=== PATIENT | female | born 1955 | race Caucasian/White ===

== ENCOUNTER 2020-03-17 10:18 | Emergency (ER) | payer MEDICARE, OTHER ==
--- NOTE | 2020-03-17 11:22 | ER Document Report ---
ED Medical Screen (RME) - General Chief Complaint: Chest Pain Stated Complaint: CHEST/LUNG PAIN Time Seen by Provider: 03/17/20 11:13 Primary Care Provider: GWEN LEON MD [Primary Care Provider] - Follow up as needed TRAVEL OUTSIDE OF THE [place] IN LAST 30 DAYS: No - HPI Notes: 03/17/20 11:20 64-year-old female with a history of PVCs, hypertension and hypercholesteremia presents to the emergency room for complaints of worsening palpitations and chest pain over the last 5 days. Patient reports left-sided chest pain as a dull ache that lasts intermittently for only few seconds that radiates underneath her arms. Denies any shortness of breath, nausea vomiting or diarrhea, fevers or chills. No prior history of MO. Denies any trauma. Reports mother has a history of stroke and hypertension, father history of hypertension. Patient states that she does not always feel the palpitations while she is having the chest pain. Patient does not follow with a graphic design professor however she did years ago when she was being worked up for her PVCs. Denies any new medications or foods. Denies any history of thyroid issues. Patient is not on any blood thinners I have greeted and performed a rapid initial assessment of this patient. A comprehensive ED assessment and evaluation of the patient, analysis of test results and completion of the medical decision making process will be conducted by additional ED providers. PHYSICAL EXAMINATION: GENERAL: Well-appearing, well-nourished and in no acute distress. HEAD: Atraumatic, normocephalic. EYES: Pupils equal round extraocular movements intact, conjunctiva are normal. NECK: Normal range of motion CV: s1, s2 regular LUNGS: No respiratory distress 03/17/20 11:22 - Related Data Allergies/Adverse Reactions: No Known Allergies Allergy (Unverified 07/15/12 11:54) Past Medical History - Past Medical History Cardiac Medical History: Reports: Hx Hypertension Past Surgical History: Reports: Hx Breast Surgery, Hx Hysterectomy - Immunizations Hx Diphtheria, Pertussis, Tetanus Vaccination: Yes Physical Exam - Vital signs Vitals: Temp Pulse Resp BP Pulse Ox 98.3 F 63 18 158/65 H 97 03/17/20 10:43 03/17/20 10:43 03/17/20 10:43 03/17/20 10:43 03/17/20 10:43 Course - Vital Signs Vital signs: Temp Pulse Resp BP Pulse Ox 98.3 F 63 18 158/65 H 97 03/17/20 10:43 03/17/20 10:43 03/17/20 10:43 03/17/20 10:43 03/17/20 10:43 Doctor's Discharge - Discharge Referrals: GWEN LEON MD [Primary Care Provider] - Follow up as needed
--- NOTE | 2020-03-17 11:57 | RADIOLOGY REPORT (SQ) ---
EXAM DESCRIPTION: CHEST 2 VIEWS IMAGES COMPLETED DATE/TIME: 03/17/2020 11:48 am REASON FOR STUDY: cp COMPARISON: 08/11/2009 EXAM PARAMETERS: NUMBER OF VIEWS: two views TECHNIQUE: Digital Frontal and Lateral radiographic views of the chest acquired. RADIATION DOSE: NA LIMITATIONS: none FINDINGS: LUNGS AND PLEURA: No opacities, masses or pneumothorax. No pleural effusion. MEDIASTINUM AND HILAR STRUCTURES: No masses or contour abnormalities. HEART AND VASCULAR STRUCTURES: Heart normal size. No evidence for failure. BONES: No acute findings. HARDWARE: None in the chest. OTHER: No other significant finding. IMPRESSION: NO ACUTE RADIOGRAPHIC FINDING IN THE CHEST. TECHNICAL DOCUMENTATION: JOB ID: [id number] 2010 [employer]- All Rights Reserved Reading location - IP/workstation name: [email or web address]
[2020-03-17 11:59] LABS: ABSOLUTE BASOPHILS # (AUTO) 0.1 10^3/uL (0.0-0.2); ABSOLUTE EOSINOPHILS # (AUTO) 0.1 10^3/uL (0.0-0.6); ABSOLUTE LYMPHOCYTES (AUTO) 1.9 10^3/uL (0.5-4.7); ABSOLUTE MONOCYTES (AUTO) 0.5 10^3/uL (0.1-1.4); ABSOLUTE NEUT (AUTO) 4.1 10^3/uL (1.7-8.2); BASOPHILS % (AUTO) 1.4 % (0-2); EOSINOPHILS % (AUTO) 1.3 % (0-6); HEMATOCRIT 37.7 % (36.0-47.0); MEAN CORPUSCULAR HEMOGLOBIN 29.8 pg (27.0-33.4); MEAN CORPUSCULAR HGB CONC 34.5 g/dL (32.0-36.0); MEAN CORPUSCULAR VOLUME 86 fl (80-97); PLATELET COUNT 298 10^3/uL (150-450); RED BLOOD COUNT 4.38 10^6/uL (3.72-5.28); RED CELL DISTRIBUTION WIDTH 13.1 % (11.5-14.0); SEGMENTED NEUTROPHILS % (AUTO) 61.3 % (42-78); TOTAL CELLS COUNTED % (AUTO) 100 %; WHITE BLOOD COUNT 6.7 10^3/uL (4.0-10.5)
[2020-03-17 12:16] LABS: ALBUMIN 4.6 g/dL (3.5-5.0); ALKALINE PHOSPHATASE 120 U/L (38-126); ANION GAP 11 (5-19); ASPARTATE AMINO TRANSFERASE 26 U/L (14-36); BILIRUBIN,DIRECT 0.3 mg/dL (0.0-0.4); BILIRUBIN,TOTAL 0.6 mg/dL (0.2-1.3); BLOOD UREA NITROGEN 15 mg/dL (7-20); CALCIUM 9.8 mg/dL (8.4-10.2); CARBON DIOXIDE 31 mmol/L (22-30); CHLORIDE 99 mmol/L (98-107); CREATINE KINASE 98 U/L (30-135); GLUCOSE 113 mg/dL (75-110); TOTAL PROTEIN 7.4 g/dL (6.3-8.2)
[2020-03-17 12:29] LABS: CREATINE KINASE MB 0.91 ng/mL (<4.55)
[2020-03-17 12:30] LABS: TROPONIN I < 0.012 ng/mL
[2020-03-17 17:08] VITALS: BP 137/72
--- NOTE | 2020-03-17 17:08 | ER Document Report ---
ED General - General Chief Complaint: Chest Pain Stated Complaint: CHEST/LUNG PAIN Time Seen by Provider: 03/17/20 11:13 Primary Care Provider: GWEN LEON MD [Primary Care Provider] - Follow up as needed Mode of Arrival: Ambulatory Information source: Patient Notes: 64-year-old female with history of PVCs and hypertension coming in today with intermittent episodes of slight left-sided chest pressure. Patient does not have any associated diaphoresis, shortness of breath, radiation of symptoms. She noticed that she has been having increased episodes of PVCs as well. She does not smoke, drink, or do drugs. She does not have any other known cardiac risk factors. TRAVEL OUTSIDE OF THE [place] IN LAST 30 DAYS: No - Related Data Allergies/Adverse Reactions: No Known Allergies Allergy (Unverified 07/15/12 11:54) Past Medical History - Social History Smoking Status: Never Smoker Chew tobacco use (# tins/day): No Frequency of alcohol use: None Drug Abuse: None Family History: Reviewed & Not Pertinent - Past Medical History Cardiac Medical History: Reports: Hx Hypercholesterolemia, Hx Hypertension GI Medical History: Reports: Hx Gastroesophageal Reflux Disease Past Surgical History: Reports: Hx Breast Surgery, Hx Hysterectomy, Hx Tonsillectomy - Immunizations Hx Diphtheria, Pertussis, Tetanus Vaccination: Yes Review of Systems - Review of Systems Notes: Constitutional: No fevers. No chills. EENT: No eye redness. No eye pain. No ear pain. No sore throat. Cardiovascular: Positive for rare palpitations. Positive for mild left-sided chest pain Respiratory: No cough. No shortness of breath. No respiratory distress. Gastrointestinal: No abdominal pain. No nausea, vomiting, or diarrhea. Genitourinary: Atraumatic. No lesions. No pain. No discharge. Musculoskeletal: Atraumatic. No swelling. No deformities. Skin: No rash or lesions. Lymphatic: No swollen lymph nodes. Neurologic: No headache. No syncope. Psychiatric: No suicidal or homicidal ideation. Physical Exam - Vital signs Vitals: Temp 98.2 F 03/17/20 10:21 - Notes Notes: General: Well-developed, well-nourished. In no acute distress. Non-toxic appearing. Cardiac: Well-perfused. Regular rate and rhythm. No murmurs, rubs, or gallops. Pulmonary: No respiratory distress. No cyanosis. Bilateral lung monk are clear to auscultation. Abdominal: Non-distended. Non-rigid. Bowels sounds are present in all four quadrants. No guarding or rebound. HEENT: Head is atraumatic. Conjunctivae not reddened. No tearing. PERRL. EOMI. Orbits atraumatic. No periorbital swelling or erythema. Oropharynx is without er ythema, swelling, or exudates. Neck: Supple. No adenopathy. No meningismus. Dermatologic: Warm with good turgor. No rash. Atraumatic. Chest: Atraumatic. No chest wall tenderness to palpation. Musculoskeletal: Moves all extremities well. No range of motion deficits. no muscular or joint tenderness. No paraspinal muscle tenderness. no midline spinal tenderness or step-off. Genitourinary: Examination deferred Neurologic: No gross neurologic deficits. Psychiatric: Normal mood. Course - Re-evaluation Re-evalutation: 03/17/20 17:04 The time the patient is seen, she has had 2 sets of cardiac enzymes get it. Patient has very mild symptoms that come and go intermittently. She has not had any shortness of breath, dizziness, diaphoresis. No nausea whatsoever. Her heart score is 3. I did encourage her to follow-up with her primary care doctor and will also give her Dr. Bernard's information. She is advised to return to the emergency department at any time if her symptoms get worse. - Vital Signs Vital signs: Temp Pulse Resp BP Pulse Ox 98.3 F 63 16 158/65 H 98 03/17/20 10:43 03/17/20 10:43 03/17/20 16:16 03/17/20 10:43 03/17/20 16:16 - Laboratory Result Diagrams: 03/17/20 11:30 03/17/20 11:30 Laboratory results interpreted by me: 03/17/20 11:30 Carbon Dioxide 31 H Glucose 113 H - Diagnostic Test Radiology reviewed: Reports reviewed - EKG Interpretation by De EKG shows normal: Sinus rhythm Rate: Normal Rhythm: NSR Additional EKG results interpreted by me: 03/17/20 17:[address] segment elevations or depressions Discharge - Discharge Clinical Impression: Elevated blood pressure reading Chest pain Qualifiers: Chest pain type: unspecified Qualified Code(s): R07.9 - Chest pain, unspecified Condition: Good Disposition: HOME, SELF-CARE Instructions: Chest Pain of Unclear Cause ([facility]) Forms: Elevated Blood Pressure Referrals: GWEN LEON MD [Primary Care Provider] - 03/18/20
--- NOTE | 2020-03-18 13:01 | EKG REPORT ---
SEVERITY:- ABNORMAL ECG - SINUS RHYTHM NONSPECIFIC ST-T CHANGES ANTERIOR WALL. : Confirmed by: Codey Warren MD 18-Mar-2020 13:01:01
== END 2020-03-17 17:19 | disposition home or self-care (01) ==
LOC: ER 10:18
DX: R07.9 Chest pain, unspecified (principal); I10 Essential (primary) hypertension; E78.00 Pure hypercholesterolemia, unspecified
CPT/HCPCS: 36415; 71046; 80053; 82550; 82553; 84443; 84484; 85025; 93005; 93010; 99285